=== PATIENT | male | born 1970 | race Caucasian/White ===

== ENCOUNTER 2022-10-08 21:56 | Observation (INO) | payer OTHER, SELFPAY ==
--- NOTE | ~2022-10-08 | XR_ITS ---
PA, oblique, and lateral views of the left fourth finger CLINICAL HISTORY: Swelling, pain FINDINGS: No acute fracture or dislocation seen. Osseous alignment is anatomic. Joint spaces are pres erved. There is prominent, diffuse soft tissue swelling of the fourth digit. IMPRESSION: Extensive soft tissue swelling of the fourth digit, nonspecific. No osseous or articular abnormality seen. Reviewed, dictated and finalized at [facility].
[2022-10-08 22:04] VITALS: BP 133/97; PULSE 110; RESP 18; TEMP 36.8; O2SAT 98
[2022-10-08 23:57] VITALS: BP 142/76; PULSE 107; RESP 15; TEMP 36.4; O2SAT 98
[2022-10-09] VITALS (23 sets, daily range): BP systolic 116–146; BP diastolic 64–116; PULSE 81–90; RESP 14–16; TEMP 36.6–36.8; O2SAT 93–100; BMI 22.0
[2022-10-09 02:15] LABS: Basophils Absolute Auto 0.1 K/mm3 (0.0-0.1); Basophils Percent Auto 0.7 % (0.2-1.2); Eosinophils Absolute Auto 0.7 K/mm3 (0-0.3); Hematocrit 40.4 % (42.0-52.0); Hemoglobin 13.5 g/dL (14.0-18.0); Immature Granulocyte Absolute 0.05 K/mm3 (0.00-0.031); Immature Granulocyte Percent A 0.4 % (0-0.5); Lymphocytes Absolute Auto 2.23 K/mm3 (0.9-3.2); Lymphocytes Percent Auto 16.3 % (18.3-44.2); Mean Corpuscular HGB Conc 33.4 g/dl (32-36); Mean Corpuscular Hemoglobin 29.7 pg (26-34); Mean Platelet Volume 8.7 fl (7.4-10.4); Monocytes Absolute Auto 1.7 K/mm3 (0.1-0.6); Monocytes Percent Auto 12.2 % (2.6-8.5); Neutrophils Absolute Auto 8.9 K/mm3 (1.3-6.7); Neutrophils Percent Auto 65.4 % (45.5-73.1); Platelet Count Result 404 k/mm3 (150-375); Red Blood Count 4.54 M/mm3 (4.6-6.20); Red Cell Distribution Width 13.2 % (11.5-14.5); White Blood Count 13.7 K/mm3 (4.5-10.0)
--- NOTE | 2022-10-09 02:23 | ED.UPPEXIN ---
HPI - Extremity Injury (Upper) General Chief Complaint: Extremity Injury, Upper <FREDERIC Vincent Last Filed: 10/09/22 03:38> Stated Complaint: finger swelling <FREDERIC Vincent Last Filed: 10/09/22 03:38> Time Seen by Provider: 10/09/22 00:24 <FREDERIC Vincent Last Filed: 10/09/22 03:38> Source: patient <FREDERIC Vincent Last Filed: 10/09/22 03:38> Mode of arrival: ambulatory <FREDERIC Vincent Last Filed: 10/09/22 03:38> Limitations: no limitations <FREDERIC Vincent Last Filed: 10/09/22 03:38> History of Present Illness HPI narrative: Patient is a 52-year-old male who presents the ED with report of pain, swelling, redness to his left fourth digit. Patient reports he sustained a blister over the flexor surface of his PIP joint around 3 weeks ago from work. He states he popped the blister several times and had purulent drainage. Over the last 1 week, he has had worsening pain/redness/swelling to the entire 4th digit. Difficulty bending digit. Denies any fevers. <FREDERIC Vincent Last Filed: 10/09/22 03:38> Related Data Home Medications: Home Medications Medication Instructions Recorded Confirmed No Home Medications 10/09/22 10/09/22 <FREDERIC Vincent Last Filed: 10/09/22 03:38> Allergies/Adverse Reactions: Allergies Allergy/AdvReac Type Severity Reaction Status Date / Time No Known Allergies Allergy Verified 10/08/22 21:57 <FREDERIC Vincent Last Filed: 10/09/22 03:38> Review of Systems Review of Systems: CONSTITUTIONAL: Denies fever, chills, or sweats. SKIN: See HPI. MUSCULOSKELETAL: See HPI. NEUROLOGIC: Denies headache, numbness, or weakness. <FREDERIC Vincent Last Filed: 10/09/22 03:38> All systems reviewed & are unremarkable except as noted in HPI and below <Judith Yates PA-C - Last Filed: 10/09/22 03:38> [facility] Family History Family History: Family History (Updated 10/09/22 @ 04:22 by Jessica So RN) Grandparent Acute myocardial infarction Mother Diabetes mellitus <Judith Yates PA-C - Last Filed: 10/09/22 03:38> Social History Social History: Social History Smoking packs per day: 1 Smoking cigarettes per day: 20.0 Smoking status: Current every day smoker Tobacco type: cigarettes Alcohol intake: former Substance use: never Lack of Transportation: No Lack of Food: Never True Current Housing: I Have Housing Concerned About Future Housing: No Difficulty Paying Gas/Electric Bills: No Difficulty Paying for Meds: No Currently Unemployed: No Education: High School Diploma/GED Difficulty w/ Childcare or Family Care: No Spiritual care concerns: No <Judith Yates PA-C - Last Filed: 10/09/22 03:38> Exam Narrative: GENERAL: Well appearing, well-nourished, non-toxic, in no acute distress. HEAD: Normocephalic, atraumatic. NECK: Supple. No adenopathy, no masses. RESPIRATORY: Airway patent, respirations nonlabored. Clear to auscultation bilaterally, no rales, rhonchi, wheezing. CARDIOVASCULAR: Regular rate and rhythm without murmurs, rubs, or gallops. Radial pulses 2+ and equal bilaterally. MUSCULOSKELETAL: Limited flexion and extension range of motion of fourth digit on left hand. Pain with passive flexion and extension. Diffuse swelling of L 4th digit, particularly proximally. Marked TTP overlying proximal flexor surface of digit extending into distal palmar aspect/mcp region. Calloused blister present to flexor surface overlying PIP joint. Large area of raw skin noted to lateral aspect of digit consistent with popped blister. Erythema diffusely throughout digit streaking along lateral and dorsal surfaces of digit into distal hand. Warmth noted to digit. No active drainage or areas of fluctuance appreciate. Good capillary refill. Sensation intact. SKIN
[2022-10-09 02:32] LABS: Alanine Aminotransferase 28 U/L (6-50); Albumin Level 3.9 g/dL (3.5-5.1); Alkaline Phosphatase 72 U/L (38-126); Anion Gap 4 mmol/L (8-16); Aspartate Amino Transferase 31 U/L (17-59); Bilirubin,Total 0.2 mg/dL (0.2-1.3); Blood Urea Nitrogen 18 mg/dL (9-20); CRP 1.2 mg/dL (<1.0); Calcium 8.6 mg/dL (8.4-10.2); Carbon Dioxide 30 mmol/L (22-30); Chloride 104 mmol/L (98-107); Estimated Glomerular Filt Rate > 60; Glucose 112 mg/dL (65-110); Potassium 3.8 mmol/L (3.4-5.0); Sodium 138 mmol/L (137-145)
[2022-10-09 02:41] LABS: Erythrocyte Sedimentation Rate 20 mm/hr (0-20)
--- NOTE | 2022-10-09 03:36 | PC.NURSE ---
Patient requested something for pain, stated pain is 8/10. Notified NELLIE Osborne
[2022-10-09] MEDS: HYDROcodone/acetaminophen (*CRX) 5-325 MG TABLET 1 TAB PO (03:44)
[2022-10-09] MEDS: VANCOMYCIN 1,250 MG/NS 250 ML BAG 166.67 MG IVPB (03:58)
--- NOTE | 2022-10-09 04:06 | PM.IMHP ---
H&P: HPI History of Present Illness Date/Time: 10/09/22 04:06 Chief Complaint: Finger cellulitis Narrative: This is a 52 yo male with PMHx significant for Tobacco dependence, smokes about a pack of cigarettes a day, comes to ED due to swelling, tenderness, warmth, limited range of motion of the L iv finger has been present for the last 2 weeks but now is worsened, denies any fevers, rigors, chills. Patient is been admitted for further management,evaluation and treatment. Plastic surgerie has been consulted. Review of Systems Review of Systems: Left iv finger swelling, pain, warmth. Constitutional: Constitutional: Denies chills, Denies fatigue, Denies fever(s), Denies malaise, Denies night sweats and Denies weakness Eyes: Eyes: Denies change in vision ENT: Denies dysphagia and Denies odynophagia Cardiovascular: Cardiovascular: Denies chest pain, Denies palpitations and Denies dyspnea on exertion Respiratory: Respiratory: Denies chest congestion, Denies excessive phlegm production, Denies pain on inspiration and Denies dyspnea Gastrointestinal: Gastrointestinal: Denies abdominal pain, Denies dyspepsia, Denies heartburn, Denies diarrhea, Denies nausea and Denies vomiting Genitourinary: Genitourinary: Denies dysuria Musculoskeletal: Musculoskeletal: Reports deformity, Reports arthralgias, Reports joint swelling (L finger MPI ) and Reports limited range of motion Neurologic: Denies vertigo, Denies dizziness, Denies focal weakness and Denies Sensory deficit (Neuro) Psychiatric: Psychiatric: Reports no additional psychiatric complaints and Reports as per HPI Endocrine: Endocrine: Denies cold intolerance, Denies flushing, Denies heat intolerance, Denies polyphagia, Denies polydipsia and Denies palpitations Hematologic/Lymphatic: Hematologic/Lymphatic: Reports no additional hematologic/lymphatic complaints and Reports as per HPI Allergic/Immunologic: Allergic/Immunologic: Reports no additional allergic/immunologic complaints and Reports as per HPI [facility] Family History Family History (Updated 10/09/22 @ 04:22 by Jessica So RN) Grandparent Acute myocardial infarction Mother Diabetes mellitus Meds Home Medications and Allergies Allergies Allergy/AdvReac Type Severity Reaction Status Date / Time No Known Allergies Allergy Verified 10/08/22 21:57 Vital Signs Vital Signs - 24 hr 10/08/22 22:04 10/08/22 23:57 10/09/22 00:47 Temperature 98.3 F 97.6 F Pulse Rate 110 H 107 H 87 Respiratory Rate 18 15 14 Blood Pressure 133/97 H 142/76 H 126/97 H Pulse Oximetry 98 98 99 Oxygen Delivery Room Air 10/09/22 00:03 10/09/22 00:16 10/09/22 00:20 Temperature Pulse Rate Respiratory Rate Blood Pressure 143/82 H Pulse Oximetry 99 98 Oxygen Delivery 10/09/22 00:30 10/09/22 00:31 10/09/22 00:45 Temperature Pulse Rate Respiratory Rate Blood Pressure 135/82 Pulse Oximetry 100 100 100 Oxygen Delivery 10/09/22 00:46 10/09/22 01:01 10/09/22 01:02 Temperature Pulse Rate Respiratory Rate Blood Pressure 126/97 H 133/84 Pulse Oximetry 100 100 100 Oxygen Delivery 10/09/22 01:16 10/09/22 01:23 10/09/22 01:31 Temperature Pulse Rate Respiratory Rate Blood Pressure 146/116 H 117/64 Pulse Oximetry 98 100 100 Oxygen Delivery 10/09/22 01:40 10/09/22 01:45 10/09/22 01:46 Temperature Pulse Rate Respiratory Rate Blood Pressure 125/75 Pulse Oximetry 99 99 100 Oxygen Delivery 10/09/22 02:22 10/09/22 02:30 10/09/22 02:45 Temperature Pulse Rate Respiratory Rate Blood Pressure Pulse Oximetry 99 99 98 Oxygen Delivery 10/09/22 04:03 Temperature Pulse Rate 89 Respiratory Rate 14 Blood Pressure 134/84 Pulse Oximetry 100 Oxygen Delivery Exam Const: General: comfortable, no acute distress, well developed, alert, awake and average body habitus Nutritional Appearance: average body habitus
--- NOTE | 2022-10-09 04:21 | ADMGEN ---
This patient, Tae Mayer, was admitted to 2 Medical Room 240-01. Patient/family oriented to hospital policies and general routines including ID bracelet, bed and alarms, visiting hours, pain management, procedures, bathroom and other care routines, personal items, smoking policy, room service/diet, and visiting hours. Information on how to activate the Rapid Response Team has been discussed. Patient/Family are encouraged to report perceived risks to care and to ask questions if they do not understand what they are told or what they should do.
--- NOTE | 2022-10-09 07:06 | PM.IMPN ---
Progress Note: A&P Assessment and Plan (1) Cellulitis, finger: Code(s): L03.019 - Cellulitis of unspecified finger Status: Acute Assessment and Plan: Possible flexor tenosynovitis. Dr. Rice, Plastic & Hand surgery consulted and appreciate recommendations Given IV Vancomycin pharmacy dosed loading and maintenance dose & Rocephin 1 gram IV. Increase to Rocephin 2 grams IV Q24 hours given severity of infection Continue supportive care with PRN acetaminophen and tramadol. Elevate extremity (2) Tobacco dependence: Code(s): F17.200 - Nicotine dependence, unspecified, uncomplicated Status: Chronic Assessment and Plan: Current, every day smoker 1 pack per day for over 30 years. Nicotine patch daily Screen [employer]ing Equipment [employer]ter to quit (3) Diffuse wheezing: Code(s): R06.2 - Wheezing Status: Acute Assessment and Plan: Possible COPD secondary to longstanding smoking history. Expiratory wheezing bilaterally on exam. Albuterol neb Q4 hours PRN Counseled to quit smoking Recommend outpatient PFTs SpO2 94-100% room air Time Spent With Patient Time: 30 minutes time spent with patient assessment; patient education; review of labs, imaging, vitals and nursing documentation. All questions answered to the best of my ability. Subjective Date/time seen: 10/09/22 07:06 Interval history: He reports his finger is less swollen, red and painful today. He has some chills and diaphoresis last night. He also endorses a nonproductive cough. He has more than 30 ppy smoking history and occasionally uses an albuterol inhaler for SOB. No formal diagnosis of COPD or pulmonary evaluation. Review of Systems Review of Systems: All systems reviewed & are unremarkable except as noted in HPI and below Exam Narrative: General: No acute distress. Adult male sitting up in the bed. Non-toxic appearing. Neuro/Psych: Awake, alert and oriented x4 with clear speech. Cooperative. No focal sensory or motor deficits. Cranial nerves 2-12 grossly intact. Skin: warm, dry and intact. Right 4th digit palmar surface with callous wound to PIP without erythema or discharge. Left 4th digit moderate edema, dull erythema and normothermic to touch, without discharge, healing blistered lesion medial region. <3 sec cap refill. Tenderness anterior surface left 4th digit to palpation extending approximately 0.5 in distal metacarpal joint HEENT: Normocephalic. Sclera is non-icteric. Pupils equal and round. Oral mucosa pink and moist. Neck: Supple. No JVD. Heart: S1 and S2 regular rate and rhythm. No murmurs, gallops, or rubs auscultated. Chest: Respirations even and unlabored. Lung sounds with expiratory wheezing in all weiner. No rhonchi or rales. Abdomen: Soft, round and non-tender to palpation. Bowel sounds present in all 4 quadrants. No guarding. No CVA tenderness. Extremities: BLE without edema, erythema or calf tenderness. Left 4th digit with reduced PIP & DIP flexion due to swelling and pain. Left radial pulse +2 Objective Data Vital Signs Vital Signs: Vital Signs - 24 hr 10/08/22 22:04 10/08/22 23:57 10/09/22 00:47 Temperature 98.3 F 97.6 F Pulse Rate 110 H 107 H 87 Respiratory Rate 18 15 14 Blood Pressure 133/97 H 142/76 H 126/97 H Pulse Oximetry 98 98 99 Oxygen Delivery Room Air 10/09/22 00:03 10/09/22 00:16 10/09/22 00:20 Temperature Pulse Rate Respiratory Rate Blood Pressure 143/82 H Pulse Oximetry 99 98 Oxygen Delivery 10/09/22 00:30 10/09/22 00:31 10/09/22 00:45 Temperature Pulse Rate Respiratory Rate Blood Pressure 135/82 Pulse Oximetry 100 100 100 Oxygen Delivery 10/09/22 00:46 10/09/22 01:01 10/09/22 01:02 Temperature Pulse Rate Respiratory Rate Blood Pressure 126/97 H 133/84 Pulse Oximetry 100 100 100 Oxygen Delivery 10/09/22 01:16 10/09/22 01:23 10/09/22 01:31 Temperature Pulse Rate Respiratory Rate Blood Press
[2022-10-09] MEDS: traMADol HCL (*CRX) 50 MG TABLET PO ×2 (09:16→17:20)
[2022-10-09] MEDS: NICOTINE (*PBKC) 21 MG PATCH 1 PATCH TRANSDERM (09:16)
--- NOTE | 2022-10-09 11:15 | WPDCN ---
Assessment and Plan Assessment and plan (1) Cellulitis, finger: Qualifiers: Laterality: left Qualified Code(s): L03.012 - Cellulitis of left finger Code(s): L03.019 - Cellulitis of unspecified finger Status: Acute Assessment and Plan: Cellulitis. Little evidence to prompt surgical debridement at this time. Plan I will monitor daily. NPO tonight for possible trip to OR tomorrow. Continue Vanco and Rocephin. Limit narcotics to avoid masking symptoms. HPI Data of Consult Date/Time: 10/09/22 11:15 Requesting Physician: Adrian Solo MD Primary Care Provider: [employer] OPERATOR PHYSICIAN Consult Narrative Reason for consult: Cellulitis of right ring finger Narrative: Tae Mayer is a 52 year old male with 2 week hx of abrasions to palmar B 4th PIPJs. Said a coworker pulled on a cable abrading the above sites. Says he has several times punctured blisters that developed at this site on the left. He thought he was allowing pus to get out. Yesterday he presented to the ED for the first time with the swelling, redness and pain. The left ring finger shows cellulites; right shows only the thick callouses of the flexor PIPJ. He was admitted for treatment of what was thought to be septic flexor tenosynovitis. There was additionally sloughing of epithelium. WBC, CRP moderately elevated. X-ray normal. Review of Systems Review of Systems: All systems reviewed & are unremarkable except as noted in HPI and below PMFSH Family History Family History Grandparent Acute myocardial infarction Mother Diabetes mellitus Social History Social History Smoking packs per day: 1 Smoking cigarettes per day: 20.0 Smoking status: Current every day smoker Tobacco type: cigarettes Alcohol intake: former Substance use: never Lack of Transportation: No Lack of Food: Never True Current Housing: I Have Housing Concerned About Future Housing: No Difficulty Paying Gas/Electric Bills: No Difficulty Paying for Meds: No Currently Unemployed: No Education: High School Diploma/GED Difficulty w/ Childcare or Family Care: No Spiritual care concerns: No Meds Home Medications and Allergies Home Medications Medication Instructions Recorded Confirmed Type No Home Medications 10/09/22 10/09/22 History Allergies Allergy/AdvReac Type Severity Reaction Status Date / Time No Known Allergies Allergy Verified 10/08/22 21:57 Vital Signs Vital Signs - 24 hr 10/08/22 22:04 10/08/22 23:57 10/09/22 00:47 Temperature 98.3 F 97.6 F Pulse Rate 110 H 107 H 87 Respiratory Rate 18 15 14 Blood Pressure 133/97 H 142/76 H 126/97 H Pulse Oximetry 98 98 99 Oxygen Delivery Room Air 10/09/22 00:03 10/09/22 00:16 10/09/22 00:20 Temperature Pulse Rate Respiratory Rate Blood Pressure 143/82 H Pulse Oximetry 99 98 Oxygen Delivery 10/09/22 00:30 10/09/22 00:31 10/09/22 00:45 Temperature Pulse Rate Respiratory Rate Blood Pressure 135/82 Pulse Oximetry 100 100 100 Oxygen Delivery 10/09/22 00:46 10/09/22 01:01 10/09/22 01:02 Temperature Pulse Rate Respiratory Rate Blood Pressure 126/97 H 133/84 Pulse Oximetry 100 100 100 Oxygen Delivery 10/09/22 01:16 10/09/22 01:23 10/09/22 01:31 Temperature Pulse Rate Respiratory Rate Blood Pressure 146/116 H 117/64 Pulse Oximetry 98 100 100 Oxygen Delivery 10/09/22 01:40 10/09/22 01:45 10/09/22 01:46 Temperature Pulse Rate Respiratory Rate Blood Pressure 125/75 Pulse Oximetry 99 99 100 Oxygen Delivery 10/09/22 02:22 10/09/22 02:30 10/09/22 02:45 Temperature Pulse Rate Respiratory Rate Blood Pressure Pulse Oximetry 99 99 98 Oxygen Delivery 10/09/22 04:03 10/09/22 04:25 10/09/22 04:33
[2022-10-09] MEDS: VANCOMYCIN 1,250 MG/NS 250 ML 1,250 MG/250 ML BAG 166.67 MG IVPB (17:19)
[2022-10-10] MEDS: VANCOMYCIN 1,250 MG/NS 250 ML 1,250 MG/250 ML BAG 166.67 MG IVPB (04:12)
[2022-10-10 05:49] VITALS: BP 125/76; PULSE 90; RESP 16; TEMP 36.4; O2SAT 97
[2022-10-10] MEDS: traMADol HCL (*CRX) 50 MG TABLET PO (05:56)
[2022-10-10] MEDS: cefTRIAXone 2 GM/NS 100 ML 2 GM/100 ML BAG IVPB (05:58)
[2022-10-10 06:35] LABS: Basophils Absolute Auto 0.1 K/mm3 (0.0-0.1); Basophils Percent Auto 0.8 % (0.2-1.2); Eosinophils Absolute Auto 0.7 K/mm3 (0-0.3); Eosinophils Percent Auto 6.9 % (0-4.4); Hematocrit 43.5 % (42.0-52.0); Hemoglobin 13.9 g/dL (14.0-18.0); Immature Granulocyte Absolute 0.04 K/mm3 (0.00-0.031); Immature Granulocyte Percent A 0.4 % (0-0.5); Lymphocytes Absolute Auto 1.77 K/mm3 (0.9-3.2); Lymphocytes Percent Auto 16.6 % (18.3-44.2); Mean Corpuscular Hemoglobin 29.1 pg (26-34); Mean Platelet Volume 8.9 fl (7.4-10.4); Monocytes Absolute Auto 1.2 K/mm3 (0.1-0.6); Monocytes Percent Auto 10.9 % (2.6-8.5); Neutrophils Absolute Auto 6.9 K/mm3 (1.3-6.7); Neutrophils Percent Auto 64.4 % (45.5-73.1); Platelet Count Result 423 k/mm3 (150-375); Red Blood Count 4.78 M/mm3 (4.6-6.20); Red Cell Distribution Width 13.1 % (11.5-14.5); White Blood Count 10.7 K/mm3 (4.5-10.0)
[2022-10-10 06:40] LABS: Anion Gap 6 mmol/L (8-16); Blood Urea Nitrogen 14 mg/dL (9-20); Calcium 8.4 mg/dL (8.4-10.2); Carbon Dioxide 31 mmol/L (22-30); Chloride 100 mmol/L (98-107); Estimated CRCL calculation 106 ml/min; Estimated Glomerular Filt Rate > 60; Glucose 93 mg/dL (65-110); Potassium 4.4 mmol/L (3.4-5.0); Sodium 137 mmol/L (137-145)
[2022-10-10 06:43] LABS: Prothrombin Time 13.5 Seconds (11.1-14.7)
[2022-10-10 06:44] LABS: Partial Thromboplastin Time 32.6 SECONDS (22.3-36.8)
--- NOTE | 2022-10-10 08:51 | WPDPN ---
Progress Note: A&P Assessment and Plan (1) Cellulitis, finger: Qualifiers: Laterality: left Qualified Code(s): L03.012 - Cellulitis of left finger Code(s): L03.019 - Cellulitis of unspecified finger Status: Acute Plan There seems no evidence for flexor septic tenosynovitis. Cellulitis resolving by exam and labs. Increase elevation. heating pad and OT eval for increasing ROM. Subjective Date/time seen: 10/10/22 08:51 Interval history: Pt complains of pain in L ring finger. Exam Narrative: Less erythema, swelling and tenderness. Some tenderness seems to have migrated proximally along flexor sheath. Pt tolerates compression there. Also tolerates passive extension and active flexion. There is no point of severe tenderness. Objective Data Vital Signs Vital Signs: Vital Signs - 24 hr 10/09/22 09:15 10/09/22 14:00 10/09/22 20:00 Temperature 97.8 F Pulse Rate 81 Respiratory Rate 15 Blood Pressure 128/70 Pulse Oximetry 98 Oxygen Delivery Room Air Room Air 10/09/22 21:31 10/10/22 05:49 Temperature 98.2 F 97.6 F Pulse Rate 87 90 Respiratory Rate 16 16 Blood Pressure 130/77 125/76 Pulse Oximetry 93 97 Oxygen Delivery Intake/Output Intake/Output: Intake & Output 10/07/22 10/08/22 10/09/22 10/10/22 23:59 23:59 23:59 23:59 Intake Total 1950 650 Balance 1950 650 Meds/Results Medications: Active Medications Generic Name Dose Route Start Last Admin Trade Name Freq PRN Reason Stop Dose Admin Acetaminophen 1,000 mg 10/09/22 04:42 Acetaminophen 500 Mg Tablet PO Q6H PRN Mild Pain (1-3) or Fever Al Hydrox/Mg Hydrox/Simethicone 30 ml 10/09/22 04:42 Mag Hydrox/Al Hydrox/Simeth 30 Ml Udc PO Q6H PRN Indigestion Albuterol 2.5 mg 10/09/22 10:30 Albuterol Sulfate Neb 2.5 Mg/3 Ml Inh INHALATION Q4HRT PRN Shortness Of Breath Or Wheezing Hydromorphone HCl 0.5 mg 10/09/22 04:42 Hydromorphone Hcl Inj (*Crx) 1 Mg/Ml Syr IV PUSH Q3H PRN Pain Rated 7-10 Vancomycin HCl 1,250 mg in 250 mls @ 166.667 mls/hr 10/09/22 16:00 10/10/22 05:42 Vancomycin 1,250 Mg/Ns 250 Ml IVPB Infused Q12H GREG Infusion Ceftriaxone Sodium 2 gm in 100 mls @ 200 mls/hr 10/10/22 07:00 10/10/22 06:28 Rocephin 2 Gm/Ns 100 Ml IVPB Infused Q24H GREG Infusion Nicotine 1 patch 10/09/22 09:00 10/09/22 09:16 Nicotine (*Pbkc) 21 Mg Patch TRANSDERM 1 patch QAM GREG Administration Ondansetron HCl 4 mg 10/09/22 04:42 Ondansetron Inj 4 Mg/2 Ml Vial IV PUSH Q6H PRN Nausea And Vomiting Polyethylene Glycol 17 gm 10/09/22 04:42 Polyethylene Glycol 3350 17 Gm Powd.Pack PO QAM PRN Constipation Tramadol HCl 50 mg 10/09/22 04:42 10/10/22 05:56 Tramadol Hcl (*Crx) 50 Mg Tablet PO 50 mg Q6H PRN Administration Pain Rated 4-6 Radiology Results: ITS Impressions Finger X-Ray 10/09/22 06:18 IMPRESSION: Extensive soft tissue swelling of the fourth digit, nonspecific. No osseous or articular abnormality seen. Labs Labs: Laboratory Results - last 24 hr 10/10/22 05:48 WBC 10.7 H RBC 4.78 Hgb 13.9 L Hct 43.5 MCV 91.0 MCH 29.1 MCHC 32.0 RDW 13.1 Plt Count 423 H MPV 8.9 Immature Gran % (Auto) 0.4 Neut % (Auto) 64.4 Lymph % (Auto) 16.6 L Lake % (Auto) 10.9 H Eos % (Auto) 6.9 H Baso % (Auto) 0.8 Lymph # (Auto) 1.77 Lake # (Auto) 1.2 H Eos # (Auto) 0.7 H Baso # (Auto) 0.1 Abs Immat Gran (auto) 0.04 H Absolute Neuts (auto) 6.9 H Absolute Nucleated RBC 0.0 Nucleated RBC % 0.0 PT 13.5 INR 1.0 APTT 32.6 Sodium 137 Potassium 4.4 Chloride 100 Carbon Dioxide 31 H Anion Gap 6 L BUN 14 Creatinine 0.70 Estim Creat Clear Calc 106 Estimated GFR > 60 Glucose 93 Calcium 8.4
[2022-10-10] MEDS: NICOTINE (*PBKC) 21 MG PATCH 1 PATCH TRANSDERM (10:23)
--- NOTE | 2022-10-10 12:54 | PCCCNOTE ---
On 10/10/22, the student, [Jane Moore ], provided care and completed [email or web address] on this patient. I have reviewed the student's documentation and agree with the findings.
[2022-10-10 14:00] VITALS: BP 129/84; PULSE 87; RESP 18; TEMP 36.4; O2SAT 99
--- NOTE | 2022-10-10 14:33 | PCOTNOTE ---
Attempted OT evaluation, patient in shower at this time, will follow and attempt at later time.
[2022-10-10 15:21] LABS: Vancomycin Trough 7.5 ug/mL (10.0-20.0)
--- NOTE | 2022-10-10 15:23 | PM.IMPN ---
Progress Note: A&P Assessment and Plan (1) Cellulitis, finger: Qualifiers: Laterality: left Qualified Code(s): L03.012 - Cellulitis of left finger Code(s): L03.019 - Cellulitis of unspecified finger Status: Acute Assessment and Plan: Dr. Rice, Plastic & Hand surgery consulted and appreciate recommendations No indication for surgical intervention at this time. Appears to be clinically resolving Continue IV vancomycin and Rocephin WBC trending down, 10.7 today. CRP 1.2 Continue with supportive care. Elevate left hand. Heating pad. OT eval for increased range of motion Analgesics as needed (2) Tobacco dependence: Code(s): F17.200 - Nicotine dependence, unspecified, uncomplicated Status: Chronic Assessment and Plan: Current, every day smoker 1 pack per day for over 30 years. Nicotine patch daily Counseled to quit (3) Diffuse wheezing: Code(s): R06.2 - Wheezing Status: Acute Assessment and Plan: Possible COPD secondary to longstanding smoking history. Faint expiratory wheezes bilaterally Albuterol neb Q4 hours PRN Counseled to quit smoking Recommend outpatient PFTs SpO2 94-100% room air No evidence of acute exacerbation Subjective Date/time seen: 10/10/22 15:23 Interval history: Date of service: 10/10/2022 Tae Mayer is a 52-year-old male with history of tobacco abuse who is seen in follow-up for cellulitis of the left 4th digit. Patient reports that his left finger is still very swollen. Endorses 6/10 throbbing pain. He feels that the redness has improved slightly. States it is still warm to touch. Pain is significantly worse when attempting to move the finger. He reports decreased range of motion. He denies nausea, vomiting, fever, chills, dizziness, lightheadedness. No shortness of breath, cough, chest pain. Review of Systems Review of Systems: All systems reviewed & are unremarkable except as noted in HPI and below Exam Narrative: General: Well-nourished, well-appearing 52-year-old male, sitting up in bed, comfortable, NARD Neuro: awake, alert and oriented x4, speech clear, no focal neuro deficits noted HEENMT: normocephalic, atraumatic, EOMI, sclerae anicteric Respiratory: Faint expiratory wheezes bilaterally, nonlabored breathing Cardio: regular rate, regular rhythm with S1-S2 Abdomen: nondistended, normoactive bowel sounds, soft, nontender to palpation Extremities: Left 4th finger is markedly edematous, decreased range of motion, brisk capillary refill. Tenderness to palpation of palmar surface of left hand, no tenderness to palpation of dorsal hand/knuckles. BLE no edema, erythema, or tenderness to palpation Skin: Open blister overlying much of medial surface of the left 4th digit. Warm and dry Psych: appropriate mood and affect, judgment and insight intact Objective Data Vital Signs Vital Signs: Vital Signs - 24 hr 10/09/22 20:00 10/09/22 21:31 10/10/22 05:49 Temperature 98.2 F 97.6 F Pulse Rate 87 90 Respiratory Rate 16 16 Blood Pressure 130/77 125/76 Pulse Oximetry 93 97 Oxygen Delivery Room Air 10/10/22 08:00 10/10/22 14:00 Temperature 97.5 F L Pulse Rate 87 Respiratory Rate 18 Blood Pressure 129/84 Pulse Oximetry 99 Oxygen Delivery Room Air Intake/Output Intake/Output: Intake & Output 10/07/22 10/08/22 10/09/22 10/10/22 23:59 23:59 23:59 23:59 Intake Total 1950 890 Balance 1950 890 Meds/Results Medications: Active Medications Generic Name Dose Route Start Last Admin Trade Name Freq PRN Reason Stop Dose Admin Acetaminophen 1,000 mg 10/09/22 04:42 Acetaminophen 500 Mg Tablet PO Q6H PRN Mild Pain (1-3) or Fever Al Hydrox/Mg Hydrox/Simethicone 30 ml 10/09/22 04:42 Mag Hydrox/Al Hydrox/Simeth 30 Ml Udc PO Q6H PRN Indigestion Albuterol 2.5 mg 10/09/22 10:30 Albuterol Sulfate Neb 2.5 Mg/3 Ml Inh
--- NOTE | 2022-10-10 17:04 | PM.DS ---
DS: Summary Time Spent with Patient Time attestation: Total time spent providing and/or coordinating discharge services: DS: Data Data Completed and Pending Labs on day of discharge: Labs from last 24 hours 10/10/22 10/10/22 14:54 05:48 WBC 10.7 H RBC 4.78 Hgb 13.9 L Hct 43.5 MCV 91.0 MCH 29.1 MCHC 32.0 RDW 13.1 Plt Count 423 H MPV 8.9 Immature Gran % (Auto) 0.4 Neut % (Auto) 64.4 Lymph % (Auto) 16.6 L [place] % (Auto) 10.9 H Eos % (Auto) 6.9 H Baso % (Auto) 0.8 Lymph # (Auto) 1.77 [place] # (Auto) 1.2 H Eos # (Auto) 0.7 H Baso # (Auto) 0.1 Abs Immat Gran (auto) 0.04 H Absolute Neuts (auto) 6.9 H Absolute Nucleated RBC 0.0 Nucleated RBC % 0.0 PT 13.5 INR 1.0 APTT 32.6 Sodium 137 Potassium 4.4 Chloride 100 Carbon Dioxide 31 H Anion Gap 6 L BUN 14 Creatinine 0.70 Estim Creat Clear Calc 106 Estimated GFR > 60 Glucose 93 Calcium 8.4 Vancomycin Trough 7.5 L Discharge Plan Discharge Attending physician on discharge: Sim Ortiz Consulting providers: Cam Fink; Jan Acosta; Judith Yates Discharging Clinician: Sim Ortiz Patient Disposition: Home, Self-Care Activity: as tolerated Diet: heart healthy Discharge Instructions: Patient to follow discharge care instruction from Dr. Acosta and follow up as schedule, patient is instructed if any symptoms worsen to go to nearest ER. Patient Instructions: Antibiotic Form, How to Stop Smoking (DC) Stand Alone Forms: General Discharge Information Follow-up/Referrals: Cam Fink DO [Physician] - Jan Acosta MD [Physician] - Discharge Medications: New tramadol 50 mg Tablet 50 mg PO Q6H PRN (Reason: Pain Rated 4-6) Qty: 12 0RF cefdinir 300 mg capsule 300 mg PO Q12H Qty: 10 0RF nicotine [Nicoderm CQ] 21 mg/24 hr Patch 24 Hour 1 patch transdermal QAM Qty: 28 0RF polyethylene glycol 3350 [Miralax] 17 gram Powder In Packet 17 g PO QAM PRN (Reason: Constipation) Qty: 14 0RF Date of admission: 10/09/22 03:33 Primary Care Provider: PHYSICIAN,LOCOMOTIVE ENGINEER DIESEL Admitting Provider: Adrian Solo V. Attending physician on admission: Peace Swift Condition: Stable
--- NOTE | 2022-10-11 07:15 | PM.DS ---
DS: Admitting Diagnosis Discharge Date 10/10/22 Admitting Diagnosis Cellulitis of left finger DS: Discharge Diagnosis Discharge Diagnosis (1) Cellulitis, finger: Qualifiers: Laterality: left Qualified Code(s): L03.012 - Cellulitis of left finger Code(s): L03.019 - Cellulitis of unspecified finger Status: Acute Assessment and Plan: Dr. Rice, Plastic & Hand surgery consulted and appreciate recommendations No indication for surgical intervention. Clinically resolving Received IV vancomycin and Rocephin during admission Will continue p.o. cefdinir as an outpatient per hand surgery recommendations WBC down to 10.7 at time of discharge Supportive care provided. Continue with elevation of pain and, heating pad, gentle [id number] exercises Short course of analgesics provided as needed (2) Tobacco dependence: Code(s): F17.200 - Nicotine dependence, unspecified, uncomplicated Status: Chronic Assessment and Plan: Current, every day smoker 1 pack per day for over 30 years. Nicotine patch provided during admission Counseled to quit (3) Diffuse wheezing: Code(s): R06.2 - Wheezing Status: Acute Assessment and Plan: Possible COPD secondary to longstanding smoking history. Faint expiratory wheezes noted bilaterally Albuterol nebs during admission Counseled to quit smoking Recommend outpatient PFTs SpO2 94-100% room air No evidence of acute exacerbation DS: Summary Hospital Course Hospital Course: Date of admission: 10/09/2022 Date of discharge: 10/11/2022 Tae Mayer is a 52-year-old male with a history of tobacco abuse who presented to the emergency department on 10/09/2022 with complaints of pain, swelling, redness to his left 4th digit after popping a blister on the flexor surface of his PIP joint. On presentation to the ED, he was tachycardic, additional vital signs were stable, WBC 13.7, CRP 1.2, finger x-ray showed extensive soft tissue swelling without osseous or articular abnormality. He was admitted to the hospitalist service for further evaluation. Please see above for further details. He had clinical improvement with IV antibiotics and no surgical intervention was indicated. Pt with adequate improvement per hand surgery and was determined to no longer require inpatient care. he was discharged by my supervising physician on 10/10/22. He will continue PO cefdinir as an outpatient and follow up with PCP in 1 week for continued monitoring. Time Spent with Patient Time attestation: Total time spent providing and/or coordinating discharge services Exam Narrative: General: Well-nourished, well-appearing 52-year-old male, sitting up in bed, comfortable, NARD Neuro: awake, alert and oriented x4, speech clear, no focal neuro deficits noted HEENMT: normocephalic, atraumatic, EOMI, sclerae anicteric Respiratory: Faint expiratory wheezes bilaterally, nonlabored breathing Cardio: regular rate, regular rhythm with S1-S2 Abdomen: nondistended, normoactive bowel sounds, soft, nontender to palpation Extremities: Left 4th finger is markedly edematous, decreased range of motion, brisk capillary refill. Tenderness to palpation of palmar surface of left hand, no tenderness to palpation of dorsal hand/knuckles. BLE no edema, erythema, or tenderness to palpation Skin: Open blister overlying much of medial surface of the left 4th digit. Warm and dry Psych: appropriate mood and affect, judgment and insight intact DS: Data Data Completed and Pending Labs on day of discharge: Labs from last 24 hours 10/10/22 14:54 Vancomycin Trough 7.5 L Imaging Radiologist's impression: ITS Impressions Finger X-Ray 10/09/22 06:18 IMPRESSION: Extensive soft tissue swelling of the fourth digit, nonspecific. No osseous or articular abnormality seen. Discharge Plan Discharge Attending physician on discharge: Thad Ortiz
== END 2022-10-10 18:50 | disposition home or self-care (01) ==
LOC: ANHED 10-09 03:38 → ANH2MED 10-09 04:11
PROVIDERS: Nurse Practitioner Family; Admitting Provider Internal Medicine; Emergency Provider Physician Assistant; Visit Provider Physician Assistant
DX: L03.012 Cellulitis of left finger (principal); R06.02 Shortness of breath; F17.210 Nicotine dependence, cigarettes, uncomplicated; F10.21 Alcohol dependence, in remission; Z79.51 Long term (current) use of inhaled steroids
CPT/HCPCS: 36415; 73140; 80048; 80053; 80202; 85025; 85610; 85652; 85730; 86140; 96365; 96366; 96367; 96375; 96376; 97110; 97165; 99285; A9270; G0378; J0696; J3370

== ENCOUNTER 2023-04-26 23:26 | Emergency (ER) | payer OTHER, SELFPAY ==
[2023-04-26 23:26] VITALS: BP 147/83; PULSE 98; RESP 18; TEMP 36.6; O2SAT 97
--- NOTE | 2023-04-26 23:37 | ECG_ITS ---
Measurements Intervals Beyer Rate: 98 P: 155 VA: 172 QRS: -49 QRSD: 115 T: 122 QT: 355 QTc: 455 Interpretive Statements ECTOPIC ATRIAL RHYTHM LEFT AXIS DEVIATION POSSIBLE LEFT ATRIAL ENLARGEMENT INCOMPLETE RIGHT BUNDLE BRANCH BLOC CONSIDER INFERIOR INFARCT, AGE INDETERMINATE BASELINE WANDER- I, II, AVR, AVL, AVF, V6 ABNORMAL ECG NO PREVIOUS ECG AVAILABLE FOR COMPARISON Electronically Signed On 04-27-2023 8:41:45 WIRE PHOTO OPERATOR by Goran Werner D.O.
[2023-04-26 23:38] VITALS: PULSE 99
[2023-04-27 00:48] LABS: Basophils Percent Auto 0.2 % (0.2-1.2); Eosinophils Percent Auto 0.1 % (0-4.4); Hematocrit 43.5 % (42.0-52.0); Hemoglobin 13.9 g/dL (14.0-18.0); Immature Granulocyte Absolute 0.06 K/mm3 (0.00-0.031); Immature Granulocyte Percent A 0.5 % (0-0.5); Lymphocytes Absolute Auto 0.63 K/mm3 (0.9-3.2); Lymphocytes Percent Auto 5.7 % (18.3-44.2); Mean Corpuscular Volume 90.6 fl (80-100); Mean Platelet Volume 9.1 fl (7.4-10.4); Monocytes Absolute Auto 0.6 K/mm3 (0.1-0.6); Monocytes Percent Auto 5.7 % (2.6-8.5); Neutrophils Absolute Auto 9.6 K/mm3 (1.3-6.7); Neutrophils Percent Auto 87.8 % (45.5-73.1); Platelet Count Result 373 k/mm3 (150-375); Red Cell Distribution Width 13.2 % (11.5-14.5)
[2023-04-27 00:55] LABS: Acetaminophen < 10 ug/mL (10-30); Ethanol < 10 mg/dL (<10); Salicylate < 1.0 mg/dL (2-20)
[2023-04-27 00:56] LABS: Alanine Aminotransferase 25 U/L (6-50); Albumin Level 4.1 g/dL (3.5-5.1); Alkaline Phosphatase 79 U/L (38-126); Anion Gap 11 mmol/L (8-16); Aspartate Amino Transferase 29 U/L (17-59); Bilirubin,Total 0.4 mg/dL (0.2-1.3); Blood Urea Nitrogen 19 mg/dL (9-20); Carbon Dioxide 25 mmol/L (22-30); Chloride 104 mmol/L (98-107); Estimated CRCL calculation 97 ml/min; Estimated Glomerular Filt Rate > 60; Glucose 116 mg/dL (65-110); Potassium 4.5 mmol/L (3.4-5.0); Sodium 140 mmol/L (137-145)
--- NOTE | 2023-04-27 01:56 | ED.GENADULT ---
HPI - General Adult General Chief complaint: Syncope Stated complaint: AMS, DIZZY Time Seen by Provider: 04/26/23 23:49 History of Present Illness HPI narrative: patient is a 53-year-old gentleman who presents emergency department with chief complaint of syncopal episode. The patient was released from care home and laid down on the snow outside of the care home. Patient reports that yesterday when he was arrested he swallowed a baggy full of 11 g of meth the patient managed to stay in care home throughout the night without any issues and then whenever he was released and had no place to go he laid down on the snow and EMS was called. Related Data Allergies Allergy/AdvReac Type Severity Reaction Status Date / Time No Known Allergies Allergy Verified 10/08/22 21:57 Review of Systems Review of Systems: A 10 system review of systems was completed on the patient and is negative except for what is stated in the HPI. Nursing and ancillary documentation was reviewed. [facility] Family History Family History Grandparent Acute myocardial infarction Mother Diabetes mellitus Social History Social History Smoking packs per day: 1 Smoking cigarettes per day: 20.0 Smoking status: Current every day smoker Tobacco type: cigarettes Alcohol intake: former Substance use: never Lack of Transportation: No Lack of Food: Never True Current Housing: I Have Housing Concerned About Future Housing: No Difficulty Paying Gas/Electric Bills: No Difficulty Paying for Meds: No Currently Unemployed: No Education: High School Diploma/GED Difficulty w/ Childcare or Family Care: No Spiritual care concerns: No Exam Narrative: GENERAL: Well-appearing, well-nourished, and in no acute distress. HEAD: Normocephalic, atraumatic. EYES: PERRLA and EOMI. ENT: Nares clear, no rhinorrhea or epistaxis. Mucous membranes moist. NECK: Supple. CHEST: Clear to auscultation. No respiratory distress. HEART: Regular rate and rhythm. No murmur heard. Normal peripheral pulses. ABDOMEN: Soft, nontender, nondistended, normal active bowel sounds. EXTREMITIES: Normal range of motion. No edema. SKIN: Warm, dry, no rash. NEURO: No focal deficits. Alert and oriented x3. PSYCH: Normal mood and affect. Course Vital Signs Vital signs: Vital Signs Temperature 36.6 C 04/26/23 23:26 Pulse Rate 98 04/26/23 23:26 Respiratory Rate 18 04/26/23 23:26 Blood Pressure 147/83 H 04/26/23 23:26 Pulse Oximetry 97 04/26/23 23:26 Oxygen Delivery Room Air 04/26/23 23:26 Temperature 36.6 C 04/26/23 23:26 Pulse Rate 99 04/26/23 23:38 Respiratory Rate 18 04/26/23 23:26 Blood Pressure 134/82 04/27/23 02:36 Pulse Oximetry 97 04/26/23 23:26 Oxygen Delivery Room Air 04/26/23 23:26 Medical Decision Making MDM Narrative Medical decision making narrative: Differential diagnosis includes polysubstance use, dehydration, electrolyte abnormality laboratory studies were obtained the patient showed a normal CBC CMP was within normal limits urinalysis showed positive for ketones and drug screen was just positive for amphetamines Vital Signs Vital Signs: Vital Signs Temperature 36.6 C 04/26/23 23:26 Pulse Rate 98 04/26/23 23:26 Respiratory Rate 18 04/26/23 23:26 Blood Pressure 147/83 H 04/26/23 23:26 Pulse Oximetry 97 04/26/23 23:26 Oxygen Delivery Room Air 04/26/23 23:26 Temperature 36.6 C 04/26/23 23:26 Pulse Rate 99 04/26/23 23:38 Respiratory Rate 18 04/26/23 23:26 Blood Pressure 134/82 04/27/23 02:36 Pulse Oximetry 97 04/26/23 23:26 Oxygen Delivery Room Air 04/26/23 23:26 Lab Data 04/27/23 00:33 04/27/23 00:33 Labs: Lab Results 04/27/23 04/27/23 Range/Units 00:33 03:36 WBC 11.0 H (4.5-10.0) K/m
[2023-04-27 02:36] VITALS: BP 134/82
--- NOTE | 2023-04-27 02:56 | PC.NURSE ---
this rn spoke with pt to collect a urine sample. pt stated to this rn, you fucking bitch you keep coming in here, that's the problem . This rn educated pt on how to speak to staff. Pt states My stomach hurts because I swallowed fucking meth . This RN verbalized to pt that he called an ambulance due to abdominal pain. Pt stated yeah because I swallowed fucking meth . This Rn explained to pt that if pt did not want to cooperate in continutiy of his care, then this RN was unsure of what pt wanted his plan of care to be. This RN educated pt again x3 about providing a urine sample.
--- NOTE | 2023-04-27 03:04 | PC.NURSE ---
EDP DR. POLANCO VERBALLY ORDER A ROAD TEST , TO SEE HOW PT COULD AMBULATE. UPON AMBULATION TEST, PT WAS ABLE TO WALK WITH A STEADY UNASSISTED GAIT. PT WAS THEN ABLE TO PROVIDE MALE RN WITH A URINE SPECIMEN.
[2023-04-27 03:50] LABS: Appearance Urine Clear (Clear); Bilirubin Urine Negative (Negative); Blood Urine Negative (Negative); Color Urine Yellow (Yellow); Glucose Urine UA Negative (Negative); Ketones Urine Trace mg/dL (Negative); Leukocyte Esterase Ur Negative LEU/UL (Negative); Nitrate Urine Negative (Negative); Protein Urine Negative (Negative); Specific Grav Ur 1.029 (1.001-1.035); pH Urine 6.5 (5.0-9.0)
[2023-04-27 04:05] LABS: Barbiturate Screen Urine Negative (Negative); Benzodiazepines Screen Urine Negative (Negative)
[2023-04-27 04:12] LABS: Cannabinoid Screen Urine Negative (Negative); Cocaine Screen Urine Negative (Negative); Methadone Screen Urine Negative (Negative); Opiate Screen Urine Negative (Negative); Phencyclidine Screen Urine Negative (Negative)
[2023-04-27 04:35] LABS: Add Urine Microscopic? NO
[2023-04-27 05:07] LABS: Amphetamine Screen Urine Positive (Negative)
--- NOTE | 2023-04-27 05:08 | PC.NURSE ---
THIS RN ATTEMPTED TO OBTAIN A SET OF VITALS FROM PT. PT REFUSING TO APPLY AND KEEP VITAL EQUIPMENT ON TO OBTAIN VITAL READINGS.
== END 2023-04-27 05:31 | disposition home or self-care (01) ==
PROVIDERS: Emergency Provider Emergency Medicine
DX: F15.10 Other stimulant abuse, uncomplicated (principal); F17.210 Nicotine dependence, cigarettes, uncomplicated; R94.31 Abnormal electrocardiogram [ECG] [EKG]
CPT/HCPCS: 36415; 80053; 80307; 81003; 85025; 93005; 99284